=== PATIENT | male | born 1955 | race Caucasian/White ===

== ENCOUNTER 2018-04-06 18:45 | Emergency (ER) | payer BC ==
[2018-04-06] MEDS ORDERED: LIDOCAINE 1% INJ-PF (10 MG/ML) 30 ML SDV INJ ONE (20:14)
[2018-04-06] MEDS ORDERED: DIPH/PERTUSS(ACELL)/TETANUS VAC/PF 0.5 ML SYR (>=10YO) IM ONE (21:34)
[2018-04-06] MEDS ORDERED: DOXYCYCLINE HYCLATE 100 MG TABLET PO ONE (21:34)
--- NOTE | 2018-04-06 21:38 | ER Document Report ---
ED General - General Chief Complaint: Finger Injury Stated Complaint: FINGER INJURY Time Seen by Provider: 04/06/18 19:55 Mode of Arrival: Ambulatory Information source: Patient Notes: Patient is a 62-year-old male who presents with a fishhook stuck in his right thumb just prior to arrival. Patient reports that he was fishing in fresh water when this occurred. Patient reports that his tetanus is not up-to-date. TRAVEL OUTSIDE OF THE [place] IN LAST 30 DAYS: No - Related Data Allergies/Adverse Reactions: No Known Allergies Allergy (Unverified 04/06/18 18:48) Past Medical History - General Information source: Patient - Social History Smoking Status: Former Smoker Chew tobacco use (# tins/day): No Frequency of alcohol use: None Drug Abuse: None Family History: Reviewed & Not Pertinent Patient has suicidal ideation: No Patient has homicidal ideation: No - Past Medical History Cardiac Medical History: Reports: Hx Hypertension Pulmonary Medical History: Reports: Hx COPD Renal/ Medical History: Denies: Hx Peritoneal Dialysis GI Medical History: Reports: Hx Gastroesophageal Reflux Disease Musculoskeltal Medical History: Reports Hx Arthritis Review of Systems - Review of Systems Constitutional: No symptoms reported EENT: No symptoms reported Cardiovascular: No symptoms reported Respiratory: No symptoms reported Gastrointestinal: No symptoms reported Genitourinary: No symptoms reported Male Genitourinary: No symptoms reported Musculoskeletal: No symptoms reported Skin: See HPI Hematologic/Lymphatic: No symptoms reported Neurological/Psychological: No symptoms reported Physical Exam - Vital signs Vitals: Temp Pulse Resp BP Pulse Ox 98.1 F 87 16 146/86 H 96 04/06/18 19:09 04/06/18 19:09 04/06/18 19:04/06/18 19:04/06/18 19:09 - Notes Notes: PHYSICAL EXAMINATION: GENERAL: Well-appearing, well-nourished and in no acute distress. HEAD: Atraumatic, normocephalic. NECK: Normal range of motion, supple without lymphadenopathy LUNGS: Breath sounds clear to auscultation bilaterally and equal. No wheezes rales or rhonchi. HEART: Regular rate and rhythm without murmurs Musculoskeletal: Normal range of motion, no pitting or edema. No cyanosis. NEUROLOGICAL: Cranial nerves grossly intact. Normal speech, normal gait. Normal sensory, motor exams PSYCH: Normal mood, normal affect. SKIN: Warm, Dry, normal turgor, no rashes or lesions noted. One zeeshan of a three barbed fishhook to right thumb, no involvement of the nail. Course - Re-evaluation Re-evalutation: Digital block performed to patient's right thumb. Small incision made utilizing a scalpel along the side of the fishhook. [place] was removed with no complications. Tetanus will be updated. Patient will be placed on doxycycline as a prophylaxis. She discharged in stable condition. - Vital Signs Vital signs: Temp Pulse Resp BP Pulse Ox 98.2 F 86 16 142/84 H 97 04/06/18 21:55 04/06/18 21:55 04/06/18 21:55 04/06/18 21:55 04/06/18 21:55 Discharge - Discharge Clinical Impression: Fish hook injury of finger of right hand Qualifiers: Encounter type: initial encounter Qualified Code(s): S69.91XA - Unspecified injury of right wrist, hand and finger(s), initial encounter Condition: Stable Disposition: HOME, SELF-CARE Additional Instructions: The fishhook that was struck in your right thumb has been successfully removed. Please take the doxycycline which is an antibiotic as prescribed to prevent infection. Please keep the wound clean and dry. You may use an antibacterial soap twice daily. Return to the emergency department if you develop significant pain, swelling, redness at the site or foul smelling drainage. Prescriptions: Doxycycline Hyclate 100 mg PO BID #14 capsule
[2018-04-06 21:57] VITALS: BP 142/84
== END 2018-04-06 21:57 | disposition home or self-care (01) ==
LOC: ER 18:45
DX: S61.041A Puncture wound with foreign body of right thumb without damage to nail, initial encounter (principal); X58.XXXA Exposure to other specified factors, initial encounter; Y92.838 Other recreation area as the place of occurrence of the external cause; Z23 Encounter for immunization; I10 Essential (primary) hypertension; J44.9 Chronic obstructive pulmonary disease, unspecified
CPT/HCPCS: 99283; 90471; 90715; 20103; J3490